=== PATIENT | male | born 1990 | race Caucasian/White ===

== ENCOUNTER 2019-11-05 04:05 | Emergency (ER) | payer OTHER ==
[2019-11-05] MEDS ORDERED: IBUPROFEN 600 MG TABLET (FP) PO ONE (04:32)
[2019-11-05 04:54] VITALS: BP 138/95; PULSE 83; TEMP 97.7; BMI 24.3
== END 2019-11-05 05:30 | disposition home or self-care (01) ==
LOC: FER 04:05
DX: S00.83XA Contusion of other part of head, initial encounter (principal); S16.1XXA Strain of muscle, fascia and tendon at neck level, initial encounter; T76.11XA Adult physical abuse, suspected, initial encounter; Y04.8XXA Assault by other bodily force, initial encounter
CPT/HCPCS: 99283-25

== ENCOUNTER 2020-01-18 10:06 | Emergency (ER) | payer OTHER ==
[2020-01-18 10:14] VITALS: BP 138/96; PULSE 71; TEMP 98.5; BMI 23.2
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
== END 2020-01-18 10:32 | disposition home or self-care (01) ==
LOC: FER 10:06
DX: Z77.21 Contact with and (suspected) exposure to potentially hazardous body fluids (principal)
CPT/HCPCS: 99281-25

== ENCOUNTER 2020-05-10 16:53 | Emergency (ER) | payer OTHER ==
[2020-05-10 17:17] VITALS: BP 147/102; PULSE 102; TEMP 98.3; BMI 23.6
[2020-05-10] MEDS ORDERED: ALBUTEROL SO4 HFA INHALER IH ONE ×2 (17:33)
== END 2020-05-10 18:14 | disposition home or self-care (01) ==
LOC: FER 16:53
PROC: 3E0F7GC Introduction of Other Therapeutic Substance into Respiratory Tract, Via Natural or Artificial Opening (ICD-10-PCS; principal; 2020-05-10)
DX: J45.21 Mild intermittent asthma with (acute) exacerbation (principal)
CPT/HCPCS: 99284-25

== ENCOUNTER 2020-07-25 18:49 | Emergency (ER) | payer OTHER, SELFPAY ==
[2020-07-25 18:54] VITALS: BP 132/98; PULSE 73; TEMP 98; BMI 23.6
[2020-07-25] MEDS ORDERED: IBUPROFEN 600 MG TABLET (FP) PO ONE ×2 (19:55→19:58)
== END 2020-07-25 20:04 | disposition home or self-care (01) ==
LOC: FER 18:49
DX: S39.012A Strain of muscle, fascia and tendon of lower back, initial encounter (principal)
CPT/HCPCS: 99283-25

== ENCOUNTER 2020-11-05 16:23 | Emergency (ER) | payer BC, OTHER, SELFPAY ==
[2020-11-05 16:34] VITALS: BP 140/98; PULSE 87; TEMP 98.3; BMI 23.0
[2020-11-05] MEDS ORDERED: IBUPROFEN 400 MG TABLET (FP) PO ONE ×2 (16:38→16:52)
== END 2020-11-05 21:59 | disposition home or self-care (01) ==
LOC: FER 16:23
DX: M54.2 Cervicalgia (principal)
CPT/HCPCS: 70450-TC; 72050-TC-FY; 72125-TC; 99285-25

== ENCOUNTER 2020-12-26 15:17 | Emergency (ER) | payer OTHER ==
[2020-12-26 16:39] VITALS: BP 135/94; PULSE 87; TEMP 98.6; BMI 23.6
== END 2020-12-26 17:50 | disposition home or self-care (01) ==
LOC: FER 15:17
DX: M54.2 Cervicalgia (principal); Z77.21 Contact with and (suspected) exposure to potentially hazardous body fluids; Y35.811A Legal intervention involving manhandling, law enforcement official injured, initial encounter
CPT/HCPCS: 99281-25

== ENCOUNTER 2021-04-29 15:15 | Emergency (ER) | payer OTHER ==
[2021-04-29 16:12] VITALS: BP 124/74; PULSE 98; TEMP 98; BMI 23.6
[2021-04-29] MEDS ORDERED: IBUPROFEN 400 MG TABLET (FP) PO ONE ×2 (17:13→17:18)
== END 2021-04-29 17:19 | disposition home or self-care (01) ==
LOC: JERFT 15:15
DX: S80.01XA Contusion of right knee, initial encounter (principal); S80.02XA Contusion of left knee, initial encounter; Y99.8 Other external cause status
CPT/HCPCS: 73562-TC-LT-FY; 73562-TC-RT-FY; 99284-25

== ENCOUNTER 2021-12-22 13:05 | Emergency (ER) | payer BC, OTHER ==
[2021-12-22 13:19] VITALS: BP 136/86; PULSE 94; RESP 18; TEMP 98; BMI 24.0
[2021-12-22] MEDS ORDERED: IBUPROFEN 400 MG TABLET (FP) PO ONE ×2 (13:42→14:06)
== END 2021-12-22 15:00 | disposition home or self-care (01) ==
LOC: FER 13:05
DX: S16.1XXA Strain of muscle, fascia and tendon at neck level, initial encounter (principal)
CPT/HCPCS: 72050-TC-FY; 99284-25

== ENCOUNTER 2022-05-16 22:36 | Emergency (ER) | payer OTHER ==
[2022-05-16 22:42] VITALS: BP 138/95; PULSE 96; RESP 18; TEMP 97.9; BMI 22.9
== END 2022-05-16 23:06 | disposition home or self-care (01) ==
LOC: FER 22:36
DX: S43.401A Unspecified sprain of right shoulder joint, initial encounter (principal); X50.9XXA Other and unspecified overexertion or strenuous movements or postures, initial encounter
CPT/HCPCS: 99282-25